=== PATIENT | female | born 1975 | race African-American/Black ===

== ENCOUNTER 2019-12-02 14:03 | Emergency (ER) | payer SELFPAY ==
[~2019-12-02] VITALS: Ht 162.6 cm; Wt 61.0 kg
[2019-12-02] MEDS ORDERED: LORATADINE 10MG TABLET PO SCH (15:30)
[2019-12-02] MEDS ORDERED: ACETAMINOPHEN 500MG TABLET PO ONE (15:30)
[2019-12-02 15:54] VITALS: BP 137/84
== END 2019-12-02 15:57 | disposition home or self-care (01) ==
LOC: EDBD 14:22 → ER 14:22
DX: T78.40XA Allergy, unspecified, initial encounter (principal); R60.9 Edema, unspecified; G40.909 Epilepsy, unspecified, not intractable, without status epilepticus; X58.XXXA Exposure to other specified factors, initial encounter; Z88.3 Allergy status to other anti-infective agents
CPT/HCPCS: 99283